=== PATIENT | male | born 1980 | race Caucasian/White ===

== ENCOUNTER 2018-08-06 18:04 | Emergency (ER) | payer BC ==
[~2018-08-06] VITALS: Ht 167.6 cm; Wt 86.2 kg
--- NOTE | 2018-08-06 18:57 | NUR ---
Pt remains awake,alert.Denies chest pain.respiration even,unlabored.no SOB noted.Sinus Tachycardia on monitor with rate 112.Seen,examined by .
--- NOTE | 2018-08-06 19:08 | NUR ---
Report given to NCIKY Avila.
--- NOTE | 2018-08-06 19:40 | NUR ---
Dr. Echols at bedside for MSE.
--- NOTE | 2018-08-06 19:48 | NUR ---
Xray at bedside.
--- NOTE | 2018-08-06 19:52 | NUR ---
Pt out of ER for CT.
[2018-08-06 19:58] LABS: BASOPHILS % (AUTO) 0.3 % (0.0-2.0); EOSINOPHILS % (AUTO) 0.2 % (0.0-7.0); HEMATOCRIT 47.1 % (36.7-47.1); HEMOGLOBIN 16.6 g/dL (12.5-16.3); LYMPHOCYTES # (AUTO) 1.5 K/uL (20.0-40.0); LYMPHOCYTES % (AUTO) 8.8 % (20.5-51.5); MEAN CORPUSCULAR HEMOGLOBIN 31.7 uug (23.8-33.4); MEAN CORPUSCULAR HGB CONC 35 g/dL (32.5-36.3); MEAN CORPUSCULAR VOLUME 89.9 fL (73.0-96.2); MONOCYTES # (AUTO) 1.6 K/uL (2.0-10.0); MONOCYTES % (AUTO) 9.3 % (0.0-11.0); NEUTROPHILS # (AUTO) 13.9 K/uL (1.8-8.9); NEUTROPHILS % (AUTO) 81.4 % (38.5-71.5); PLATELET COUNT (AUTO) 305 K/uL (152-348); RED BLOOD CELL COUNT(AUTO) 5.24 MIL/uL (4.06-5.63); WHITE BLOOD COUNT (AUTO) 17.1 K/uL (3.6-10.2)
--- NOTE | 2018-08-06 20:01 | NUR ---
Pt back to ER from CT.
[2018-08-06 20:07] LABS: CREATININE 1.2 mg/dL (0.6-1.3); POTASSIUM 3.6 mmol/L (3.5-5.1)
[2018-08-06 20:20] LABS: BILIRUBIN,DIRECT 0.2 mg/dL (0.0-0.2); BILIRUBIN,TOTAL 0.9 mg/dL (0.2-1.0); TOTAL PROTEIN, SERUM 8.1 g/dL (6.4-8.2)
[2018-08-06 20:31] LABS: *BILIRUBIN,URIN NEGATIVE (NEGATIVE); *BLOOD, URINE 1+ (NEGATIVE); *CLARITY,URINE CLEAR (CLEAR); *COLOR,URINE YELLOW (YELLOW); *KETONES,URINE TRACE (NEGATIVE); *PROTEIN,URINE 1+ (NEGATIVE); *UROBILINOGEN,URINE 0.2 E.U./dl (NORMAL); LEUKOCYTE ESTERASE ,URINE NEGATIVE (NEGATIVE); NITRITE, URINE NEGATIVE (NEGATIVE); UGLUCOSE NEGATIVE (NEGATIVE)
[2018-08-06 20:41] LABS: MUCUS,URINE MODERATE /LPF (0-FEW); WBC,URINE 0-3 /HPF (0-3)
--- NOTE | 2018-08-06 20:45 | NUR ---
Renea henao in EDM - 08/06/18 at 2055 by SUZE Patient discharged to home in stable conditon. Written and verbal after care instructions given. Patient verbalizes understanding of instructions.
--- NOTE | 2018-08-06 20:45 | NUR ---
Patient discharged to home in stable conditon. Written and verbal after care instructions given. Patient verbalizes understanding of instructions. Patient ambulated out of ER with steady gait, no acute signs of distress, VSS, all belongings taken.
[2018-08-06 20:50] LABS: *AMPHETAMINE, URINE NEGATIVE (NEGATIVE); *BARBITURATE, URINE NEGATIVE (NEGATIVE); *CANNABINOID, URINE NEGATIVE (NEGATIVE); *COCCAINE, URINE POSITIVE (NEGATIVE); *OPIATE, URINE NEGATIVE (NEGATIVE); *PHENCYCLIDINE SCREEN,URINE NEGATIVE (NEGATIVE)
[2018-08-06 20:56] VITALS: BP 144/83
== END 2018-08-06 20:56 | disposition home or self-care (01) ==
LOC: ER 18:10
DX: R55 Syncope and collapse (principal)
CPT/HCPCS: 36415; 70030-TC; 70450; 71045; 80307; 85025; 85730; 93005; A4663